=== PATIENT | male | born 1990 | race Asian ===

== ENCOUNTER → 2022-12-23 | Emergency (ER) | payer BC ==
[~2022-12-23] VITALS: Ht 182.9 cm; Wt 80.7 kg
[~2022-12-23] MED LIST: RABIES IMMUNE GLOBULIN/PF 300 UNIT/ML 2 ML VIAL IM ONE; RABIES VACCINE (PCEC)/PF 2.5 UNIT ML IM ONE
[2022-12-23] MEDS: RABIES IMMUNE GLOBULIN/PF 300 UNIT/ML 2 ML VIAL IM ONE ×2 (13:47→13:57)
--- NOTE | 2022-12-23 13:58 | NUR ---
Patient present to the ER with request for Rabies vaccination. Vaccination given per MD order. Patient departed ambulatory.
== END | disposition home or self-care (01) ==
LOC: ER 12:07
DX: Z29.14 Encounter for prophylactic rabies immune globulin (principal); S61.451D Open bite of right hand, subsequent encounter; W55.51XD Bitten by raccoon, subsequent encounter; Z91.199 Patient's noncompliance with other medical treatment and regimen due to unspecified reason
CPT/HCPCS: 90376; A4663

== ENCOUNTER 2022-12-27 13:45 | Emergency (ER) | payer BC ==
[~2022-12-27] VITALS: Ht 182.9 cm; Wt 80.3 kg
[2022-12-27] MEDS ORDERED: RABIES VACCINE (PCEC)/PF 2.5 UNIT ML IM ONE ×2 (16:45→16:46)
[2022-12-27] MEDS ORDERED: RABIES IMMUNE GLOBULIN/PF 300 UNIT/ML 2 ML VIAL IM ONE (16:51)
--- NOTE | 2022-12-27 16:58 | NUR ---
PT WAS EVALUATED BY DR VARGAS . PT WAS D/C'd TO HOME. D/C INSTRUCTIONS GIVEN TO THE PT BY DR VARGAS.
[2022-12-27 17:01] VITALS: BP 135/74
== END 2022-12-27 17:37 | disposition home or self-care (01) ==
LOC: ER 13:45
DX: S61.401D Unspecified open wound of right hand, subsequent encounter (principal); W55.51XD Bitten by raccoon, subsequent encounter; Z91.14 Patient's other noncompliance with medication regimen
CPT/HCPCS: 90376; A4663

== ENCOUNTER 2023-01-03 15:38 | Emergency (ER) | payer BC ==
[~2023-01-03] VITALS: Ht 182.9 cm; Wt 79.4 kg
[2023-01-03] MEDS ORDERED: RABIES VACCINE (PCEC)/PF 2.5 UNIT ML IM ONE ×2 (16:00)
--- NOTE | 2023-01-03 16:18 | NUR ---
Patient discharged to home in stable condition with brisk steady gait. Written and verbal after care instructions given. Patient verbalized understanding and compliance of instructions. Stressed follow up with primary doctor or return to ER for worsening s/s.
== END 2023-01-03 17:05 | disposition home or self-care (01) ==
LOC: ER 15:38
DX: Z23 Encounter for immunization (principal); S61.451D Open bite of right hand, subsequent encounter; W55.51XD Bitten by raccoon, subsequent encounter
CPT/HCPCS: A4663